=== PATIENT | male | born 1970 | race Two or more races ===

== ENCOUNTER 2025-05-15 10:45 | Emergency (ER) | payer MEDICAID, SELFPAY ==
[2025-05-15 10:46] VITALS: BMI 29.5
[2025-05-15 10:53] VITALS: BP 133/76; PULSE 69; RESP 17; TEMP 36.8; O2SAT 96
--- NOTE | 2025-05-15 11:08 | XR_ITS ---
EXAMINATION: PA chest single view TECHNIQUE: Upright PA chest single view Date and time: May 15, 2025, 1108 hours, comparison 02/08/2023 INDICATIONS: Coughing fever beginning 1 week ago. FINDINGS: Subtle opacity in the left lower lobe may Minor prominence left ventricle No pulmonary edema Mild osteopenia IMPRESSION: Suspicious for early left base pneumonia
--- NOTE | 2025-05-15 11:11 | PC.NURSE ---
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
--- NOTE | 2025-05-15 11:19 | PD.EDURI ---
Upper Respiratory Inf. RME/HPI General Chief Complaint: Flu Like Symptoms Stated Complaint: COUGH X1 WEEK, CHEST PAIN X4 DAYS Time Seen by Provider: 05/15/25 10:47 Arrival date/time: 05/15/25 10:45 This is a 54-year-old male that comes into the emergency room with complaint of cough and fever for the past week. Patient states his chest hurts when he coughs. Otherwise pain does not hurt in his chest. Patient has a history of prediabetes. Patient was told by his primary doctor to come to the emergency room because he needs an x-ray. Patient has not been given antibiotics. Related Data Previous Rx's ?Medication ?Instructions ?Recorded Prilosec 30 MG 1 tab PO daily #12 tabs 05/28/16 azithromycin 250 mg tablet See Rx Instructions PO .COMPLEX #6 05/15/25 tabs promethazine-DM 6.25 mg-15 mg/5 mL 5 ml PO Q6H PRN cough #120 mL 05/15/25 oral syrup Allergies Allergy/AdvReac Type Severity Reaction Status Date / Time NKA Allergy Unknown Uncoded 05/15/25 10:49 No Known Allergies Allergy Unknown Uncoded 05/15/25 10:49 Review of Systems Review of Systems Systems Reviewed: All systems reviewed, normal except as documented Past Medical History Past Medical History Comments PMH COMMENT: Prediabetes ED Exam Narrative Physical exam: VITAL SIGNS: Reviewed. GENERAL APPEARANCE: Alert and interactive, follows commands, no acute distress, HEAD AND FACE: Non-traumatic. ENT: PERRL, conjuctiva pink and clear, eyelid no trauma, Mucous membrane moist. NECK: Supple, nontender, no nuchal rigidity. CHEST: No tenderness, no crepitus, no paradoxical movement, no retractions. LUNGS: Clear, well ventilated, symmetric, no rales, no wheezing, no rhonchi, no stridor, good breath sounds bilaterally. HEART: Regular rate, regular rhythm, no murmur, no gallops. ABDOMEN: Soft, nondistended, nontender NEUROLOGICAL: Gross motor function intact sensory function intact, Appropriate for age. MUSCULOSKELETAL: low back nontender, full range of motion. EXTREMITIES: No redness no swelling no skin breakdown on bilateral foot and leg. Distal neurovascular status intact bilateral foot SKIN: Color pink, dry Course Quality Measures none Orders Category Date Time Status Bedside COVID-19 Antigen Test NOW Care 05/15/25 11:08 Completed Bedside Influenza A&B Antigen Test NOW Care 05/15/25 11:08 Completed XR chest 2V Stat Exams 05/15/25 11:08 Completed Acetaminophen Tab [Tylenol ES Tab] Med 05/15/25 11:19 Discontinued 1,000 mg PO X1 ONE Ibuprofen Tab [Motrin Tab] Med 05/15/25 11:19 Discontinued 800 mg PO X1 ONE cefTRIAXone [Rocephin] 1,000 mg Med 05/15/25 12:36 Discontinued Lidocaine 1% Pf Vial 5ml [Xylocaine 1% Pf 5 ml] 2.1 ml IM X1 Vital Signs Vital signs: Vital Signs Temperature 98.2 F 05/15/25 10:53 Pulse Rate 69 05/15/25 10:53 Respiratory Rate 17 05/15/25 10:53 Blood Pressure 133/76 H 05/15/25 10:53 Pulse Oximetry (%) 96 05/15/25 10:53 Oxygen Delivery Method Room Air 05/15/25 10:53 Upper Respiratory Infection MDM Narrative MDM Narrative:: FINDINGS: Subtle opacity in the left lower lobe may Minor prominence left ventricle No pulmonary edema Mild osteopenia IMPRESSION: Suspicious for early left base pneumonia COVID and flu negative. Will treat patient for pneumonia chest x-ray shows suspicious early left base pneumonia. Will send patient home with Zithromax and have patient follow-up with primary provider in 1 to 2 days. Come back to emergency room symptoms change or worsen. Patient verbalized understanding feels comfortable plan of care. Dragon dictation: Although this document has been carefully reviewed, there may still be some phonetic and other typographical errors. These errors are purely grammatical due to imperfections in the software program and should not be construed in any way to compromise the substance of the patient's medical care during this visit. Patient data External records reviewed:: [facility] previous records Clinical information provided by:: patient Social determinants that could affect healthcare access:: none Patient has the following chronic illnesses:: see note How is presenting disease/condition affected by chronic disease/condition?: no chronic disease Evaluation data The following diagnostics were reviewed and interpreted by me:: radiology exam(s) Lab and/or radiology exams considered but not ordered:: none Interpretation Summary: see note Medications / Prescriptions Medications or Prescriptions considered but not ordered:: none Medication administrations:: Medication Administration History Discontinued Medications Acetaminophen (Acetaminophen 500 Mg Tablet) 1,000 mg PO X1 ONE Stop: 05/15/25 11:20 Last Admin: 05/15/25 11:29 Dose: 1,000 mg Documented By: Ceftriaxone Sodium 1,000 mg/ (Lidocaine HCl 2.1 ml) 0 mg IM X1 ONE Stop: 05/15/25 12:37 Last Admin: 05/15/25 12:44 Dose: 1,000 mg Documented By: Ibuprofen (Ibuprofen Tab 400 Mg Tablet) 800 mg PO X1 ONE Stop: 05/15/25 11:20 Last Admin: 05/15/25 11:29 Dose: 800 mg Documented By: see mar Consultations Consultation(s) initiated? (list below): No Diagnosis Upper Respiratory Differential Diagnosis: upper respiratory infection, viral infection, bronchitis, influenza and other (pneumonia ) Most likely diagnosis given after review of the tests above:: pneumonia Admission Indicated Admission indicated?: not indicated Admission Request Was there a request for admission?: No Disposition Plan Disposition Plan: Discharge Discharge Attestation Discharge Attestation: The patient and all family members were given an opportunity to ask questions and understood the discharge instructions. Discharge instructions specifically effects, indications for sooner follow up or return to the emergency department, and the expected course of current diagnosis. Patient condition: Stable Discharge Plan Plan Patient Disposition: HOME (Self Care) Patient condition on transfer: Stable Prescriptions/Referrals Prescriptions/Med Rec: New azithromycin 250 mg tablet See Rx Instructions .ROUTE .COMPLEX Qty: 6 0RF Rx Instructions: For 250 mg dose pack: take 500 mg today (day 1), then 250 mg for 4 days (days 2-5) promethazine-DM 6.25-15 mg/5 mL syrup 5 ml PO Q6H PRN (Reason: cough) Qty: 120 0RF No Action Prilosec 30 MG 1 tab PO daily Qty: 12 0RF Referrals: Meenakshi Orellana FNP-C [Primary Care Provider] - In 1 week Problem List Clinical Impression: Cough, Pneumonia Patient/Caregiver Discharge Instructions Discharge Activity: activity as tolerated Education Materials: ED Pneumonia (Adult) Additional Instructions: Marli un chente con lubin medico de cabecera en las proximas 24-48 horas. Regrese a la saniya de emergencias si hay evidencia de que los signos o sintomas empeoran. Print Language: Haitian Stand Alone Forms: Shelly Award Info., Patient Portal Info Letter PA/BUSHWALKING GUIDE Supervising Physician PA/BUSHWALKING GUIDE Supervising Physician: jono
[2025-05-15] MEDS: IBUPROFEN TAB 400 MG TABLET 800 MG PO (11:29)
[2025-05-15] MEDS: ACETAMINOPHEN 500 MG TABLET 1000 MG PO (11:29)
== END 2025-05-15 13:02 | disposition home or self-care (01) ==
PROVIDERS: Emergency Provider Emergency Medicine
DX: J18.9 Pneumonia, unspecified organism (principal)
CPT/HCPCS: 71046; 87502; 87635; 96372; 99283; J0696; J3490; A9270